=== PATIENT | male | born 2005 | race Native Hawaiian/Other Pacific Islander ===

== ENCOUNTER 2024-04-06 00:12 | Emergency (ER) | payer OTHER ==
[2024-04-06 01:21] LABS: BASO # 0.02 K/mm3 (0.02-0.10); HEMATOCRIT 50.4 % (36.0-47.0); HEMOGLOBIN 16.2 g/dL (12.5-16.1); LYMPH# 0.93 K/mm3 (1.50-4.00); MEAN CELL VOLUME 86 fl (78-95); MEAN CORPUSCULAR HEMOGLOBIN 28 pg (26-32); MEAN CORPUSCULAR HGB CONC 32 g/dL (33-37); MEAN PLATELET VOLUME 9.7 fl (7.4-10.4); MONO # 1.12 K/mm3 (0.20-0.80); NEU # 12.13 K/mm3 (1.40-6.50); PLATELET COUNT 253 K/mm3 (130-400); RED BLOOD COUNT 5.84 M/mm3 (4.20-5.60); RED CELL DISTRIBUTION WIDTH 12.9 % (11.5-14.5); WHITE BLOOD COUNT 14.2 K/mm3 (4.8-10.8)
[2024-04-06 01:28] LABS: ALBUMIN 5.6 g/dL (3.5-5.0); SODIUM 146 mmol/L (136-145)
[2024-04-06 01:30] LABS: GLUCOSE 109 mg/dL (75-110); TOTAL PROTEIN 8.9 g/dL (6.4-8.3)
[2024-04-06 01:30] LABS: URINE APPEARANCE SLIGHTLY CLOUDY (CLEAR); URINE COLOR DARK YELLOW (YELLOW)
[2024-04-06 01:31] LABS: URINE BILIRUBIN 2+ (NEGATIVE); URINE BLOOD NEGATIVE (NEGATIVE); URINE GLUCOSE NEGATIVE (NEGATIVE); URINE KETONE 1+ (NEGATIVE); URINE LEUKOCYTE ESTERASE NEGATIVE (NEGATIVE); URINE NITRATE NEGATIVE (NEGATIVE); URINE PROTEIN(semi-quant) 2+ (NEGATIVE)
[2024-04-06 01:31] LABS: CARBON DIOXIDE 21 mmol/L (22-29)
[2024-04-06 01:32] LABS: TOTAL BILIRUBIN 1.4 mg/dL (0.2-1.2)
[2024-04-06 01:35] LABS: ALCOHOL IN-HOUSE < 10 mg/dL (<10); AST-SGOT 47 U/L (5-34)
[2024-04-06 01:35] LABS: URINE MUCUS PRESENT (NOT PRESENT)
[2024-04-06 01:37] LABS: ACETAMINOPHEN < 1 ug/mL; ALT/SGPT 29 U/L (0-55)
[2024-04-07] MEDS ORDERED: LORazepam 0.5 MG TABLET PO ONE (04:00)
[2024-04-08 18:00] VITALS: BP 152/98
[2024-04-09] MEDS ORDERED: ATIVAN1 M1 PO (18:38)
== END 2024-04-08 18:00 | disposition home or self-care (01) ==
LOC: ED 00:12
PROVIDERS: Family Medicine
DX: R45.851 Suicidal ideations (principal); F17.200 Nicotine dependence, unspecified, uncomplicated